=== PATIENT | female | born 1960 | race Caucasian/White ===

== ENCOUNTER 2018-08-21 18:41 | Emergency (ER) | payer MEDICAID ==
[2018-08-21] MEDS: METHOCARBAMOL 750 MG TAB PO (22:17)
[2018-08-21] MEDS: KETOROLAC 15 MG INJ IM (22:18)
== END 2018-08-21 23:42 | disposition home or self-care (01) ==
LOC: FTE 18:41
DX: M79.602 Pain in left arm (principal); Z85.3 Personal history of malignant neoplasm of breast
CPT/HCPCS: 73030; 96372; 99284-25

== ENCOUNTER 2018-11-11 09:02 | Emergency (ER) | payer MEDICAID ==
[2018-11-11] MEDS: KETOROLAC 30 MG INJ IM (09:37)
[2018-11-11] MEDS: METHOCARBAMOL 750 MG TAB PO (09:44)
== END 2018-11-11 09:58 | disposition home or self-care (01) ==
LOC: FTE 09:58
DX: M79.602 Pain in left arm (principal)
CPT/HCPCS: 96372; 99284-25; J1885